=== PATIENT | male | born 1980 | race Caucasian/White ===

== ENCOUNTER 2020-12-17 15:52 | Emergency (ER) | payer OTHER ==
--- NOTE | 2020-12-17 16:22 | ED Physician Documentation ---
PD HPI CHEST PAIN - Stated complaint Stated Complaint: FEELING FAINT - Chief complaint Chief Complaint: General - History obtained from History obtained from: Patient - History of Present Illness Timing - onset: How many days ago (3) Timing - onset during: Light activity Timing - duration: Seconds (feels like very brief lightheaded feeling for just second at a time every few minutes.) Quality: Tightness. No: Sharp, Tearing Location: Substernal Worsened by: No: Exertion, Inspiration Associated symptoms: Feeling faint / dizzy (very briefly), Other (his and daughter (teen) have COVID currently with mild to moderate illness.). No: Shortness of air, Cough Similar symptoms before: Has not had sx before Recently seen: Other (he had COVID vaccine June.) Review of Systems Constitutional: denies: Fever, Chills Nose: denies: Rhinorrhea / runny nose, Congestion Throat: denies: Sore throat Respiratory: denies: Cough PD PAST MEDICAL HISTORY - Past Medical History Past Medical History: No Cardiovascular: None Respiratory: None Neuro: None Endocrine/Autoimmune: None - Present Medications Home Medications: Ambulatory Orders Medication Instructions Recorded Confirmed Eszopiclone [Lunesta] 3 mg PO HS PRN 12/17/20 12/17/20 Sertraline [Zoloft] 100 mg ORAL DAILY 12/17/20 12/17/20 - Allergies Allergies/Adverse Reactions: Allergies Allergy/AdvReac Type Severity Reaction Status Date / Time No Known Drug Allergies Allergy Verified 12/17/20 16:05 PD ED PE NORMAL - Vitals Vital signs reviewed: Yes - General General: Alert and oriented X 3, No acute distress, Well developed/nourished - HEENT HEENT: Pharynx benign - Neck Neck: Supple, no meningeal sign, No adenopathy, Thyroid normal - Cardiac Cardiac: RRR, No murmur - Respiratory Respiratory: Clear bilaterally - Derm Derm: Normal color, Warm and dry - Extremities Extremities: No edema, No calf tenderness / cord - Neuro Neuro: Alert and oriented X 3, No motor deficit, Normal speech Results - Vitals Vitals: Vital Signs - 24 hr 12/17/20 12/17/20 12/17/20 16:06 17:00 17:30 Temperature 36.9 C Heart Rate 73 70 64 Respiratory 18 15 12 Rate Blood Pressure 149/86 H 136/99 H 129/93 H O2 Saturation 98 98 94 Oxygen O2 Source Room air - EKG (time done) 16:32 Rate: Rate (enter#) (67) Rhythm: NSR [place]: Normal Intervals: Normal NC QRS: LVH Ischemia: Normal ST segments. No: ST elevation c/w ischemia, ST depression - Labs Labs: Laboratory Tests 12/17/20 12/17/20 12/17/20 16:24 16:24 16:24 WBC 6.3 RBC 4.63 L Hgb 15.0 Hct 42.2 MCV 91.1 MCH 32.4 H MCHC 35.5 RDW 12.5 Plt Count 230 MPV 10.1 Neut # (Auto) 3.7 Lymph # (Auto) 2.0 [place] # (Auto) 0.4 Eos # (Auto) 0.1 Baso # (Auto) 0.0 Absolute Nucleated RBC 0.00 Nucleated RBC % 0.0 Sodium 136 Potassium 4.1 Chloride 105 Carbon Dioxide 23 Anion Gap 8.0 BUN 17 Creatinine 1.3 H Estimated GFR (MDRD) 61 L Glucose 99 Calcium 9.6 Total Bilirubin 0.7 AST 37 ALT 66 H Alkaline Phosphatase 57 Troponin I High Sens 3.9 Total Protein 7.3 Albumin 4.5 Globulin 2.8 Albumin/Globulin Ratio 1.6 Lipase 26 TSH 12/17/20 16:24 WBC RBC Hgb Hct MCV MCH MCHC RDW Plt Count MPV Neut # (Auto) Lymph # (Auto) [place] # (Auto) Eos # (Auto) Baso # (Auto) Absolute Nucleated RBC Nucleated RBC % Sodium Potassium Chloride Carbon Dioxide Anion Gap BUN Creatinine Estimated GFR (MDRD) Glucose Calcium Total Bilirubin AST ALT Alkaline Phosphatase Troponin I High Sens Total Protein Albumin Globulin Albumin/Globulin Ratio Lipase TSH 1.10 - Rads (name of study) chest xray Radiology: Prelim report reviewed (normal), See rad report PD MEDICAL DECISION MAKING - ED course Complexity details: considered differential (description sounds likely to be palpitations.), d/w patient Departure - Departure Disposition: 01 Home, Self Care Clinical Impression: Episodic lightheadedness Condition: Stable Record reviewed to determine appropriate education?: Yes Comments: Your EKG and basic blood tests are normal. This included a blood count, chemistry panel, blood sugar and thyroid screen as well as a blood test to look for heart muscle injury called troponin. These were all normal. You may be having some extra beats at times causing the lightheaded feeling episodically. These are typically benign. You did not show any of those while on the monitor here. Stay well-hydrated. Regular medication as I do not think could be related to your medicines at this point. Decrease caffeine use generally. Follow-up with your primary care if persistent symptoms over the next several days. Discharge Date/Time: 12/17/20 18:03
[2020-12-17 16:29] LABS: BASOPHILS % (AUTO) 0.5 %; EOSINOPHILS # (AUTO) 0.1 10^3/uL (0.0-0.7); EOSINOPHILS % (AUTO) 2.2 %; HCT - HEMATOCRIT 42.2 % (42.0-52.0); LYMPHOCYTES % (AUTO) 31.3 %; MEAN CORPUSCULAR HEMOGLOBIN 32.4 pg (27.0-31.0); MEAN CORPUSCULAR HGB CONC 35.5 g/dL (32.0-36.0); MEAN CORPUSCULAR VOLUME 91.1 fL (80.0-94.0); MEAN PLATELET VOLUME 10.1 fL (7.4-11.4); MONOCYTES # (AUTO) 0.4 10^3/uL (0.0-1.0); MONOCYTES % (AUTO) 6.7 %; NEUTROPHILS # (AUTO) 3.7 10^3/uL (1.5-6.6); NEUTROPHILS % (AUTO) 59.1 %; PLT - PLATELET COUNT 230 10^3/uL (130-450); RED BLOOD COUNT 4.63 10^6/uL (4.70-6.10); RED CELL DISTRIBUTION WIDTH 12.5 % (12.0-15.0); WHITE BLOOD COUNT 6.3 x10^3/uL (4.8-10.8)
--- NOTE | 2020-12-17 16:38 | XRAY Report ---
PROCEDURE: Chest 1 View X-Ray INDICATIONS: Chest Pain TECHNIQUE: One view of the chest was acquired. COMPARISON: None FINDINGS: Surgical changes and devices: None. Lungs and pleura: No pleural effusions or pneumothorax. Lungs are clear. Mediastinum: Mediastinal contours appear normal. Heart size is normal. Bones and chest wall: No suspicious bony lesions. Overlying soft tissues appear unremarkable. IMPRESSION: No acute cardiopulmonary pathology. Reviewed by: Dom Pascal MD on 12/17/2020 4:37 PM PDT Approved by: Dom Pascal MD on 12/17/2020 4:37 PM PDT Station ID: [id number]
[2020-12-17 16:42] LABS: ALBUMIN 4.5 g/dL (3.2-5.5); ALBUMIN/GLOBULIN RATIO 1.6 (1.0-2.2); BILIRUBIN,TOTAL 0.7 mg/dL (0.2-1.0); CALCIUM 9.6 mg/dL (8.5-10.3); CREATININE 1.3 mg/dL (0.6-1.2); POTASSIUM 4.1 mmol/L (3.5-5.0); TOTAL PROTEIN 7.3 g/dL (6.7-8.2)
[2020-12-17 17:49] VITALS: BP 129/93
== END 2020-12-17 18:03 | disposition home or self-care (01) ==
LOC: ED 15:52
DX: R42 Dizziness and giddiness (principal)
CPT/HCPCS: 36415; 80053; 83690; 84443; 84484; 85025; 93005; 99284